=== PATIENT | female | born 1935 | race Caucasian/White ===

== ENCOUNTER 2017-09-22 14:24 | Inpatient (IN) ==
--- NOTE | 2017-09-22 15:50 | CT ---
EXAM: CT THORAX HISTORY: Cough. TECHNIQUE: CT thorax without intravenous contrast. Multiplanar images presented. COMPARISON: 01/16/2010 FINDINGS: Normal heart size. No pericardial effusion. There is mild to moderate atherosclerotic disease. Yeboah ited evaluation of the mediastinum and hilar structures without the administration of intravenous con trast agent. No gross lymphadenopathy or hilar mass is seen. Lungs are hyperinflated. There is biapical irregular pleuroparenchymal thickening similar to that pr eviously seen suggesting apical scarring. There is moderate thickening of the mid to upper left mary r fissure with some adjacent interstitial thickening as well. There was a large amount consolidation in this region previously. Tiny discoid focus of consolidation anterior right cardiophrenic angle, new since the older exam possibly related to scarring. The lungs currently are otherwise clear. Nor mal vascularity. No pneumothorax or pleural fluid. IMPRESSION: 1. Thickening of the mid to upper left major fissure and adjacent interstitium which may be fibrotic in nature or secondary to recurrent regional pneumonia. 2. Background of probable moderate chronic obstructive pulmonary disease/pulmonary emphysema. 3. Mild to moderate atherosclerotic disease.
[2017-09-22] MEDS ORDERED: PROAIR HFA IH PRN (16:06)
[2017-09-22] MEDS ORDERED: NITROSTAT SL PRN (16:06)
--- NOTE | 2017-09-22 16:10 | ED.PDOC ---
General ED Provider: Dr. COSTA MODI Chief Complaint: Chest Pain Stated Complaint: chest pain Time Seen by Physician: 14:30 (chest pain at rest) Mode of Arrival: Ambulance Information Source: Patient, EMT Exam Limitations: No limitations Nursing and Triage Documentation Reviewed and Agree: Yes Reviewed sepsis parameters & appropriate labs ordered?: Yes System Inflammatory Response Syndrome: Not Applicable Sepsis Protocol: For patient's 13 years and over: Temp is 96.8 and below OR 101 and greater Pulse >90 BPM Resp >20/minute Acutely Altered Mental Status Are patient's symptoms suggestive of a new infection, such as: -Pneumonia -Skin, Soft Tissue -Endocarditis -UTI -Bone, Joint Infection -Implantable Device -Acute Abdominal Infection -Wound Infection -Meningitis -Blood Stream Catheter Infection -Unknown System Inflammatory Response Syndrome: Not Applicable Cardiovascular Complaint Exam - Chest Pain Complaint/Exam Onset: Gradual Duration: this morning at rest Symptoms Are: Resolved Timing: Intermittent Length of Chest Pain Episodes: 2 to 3 hours Initial Severity: Mild Current Severity: Mild Location: Reports: Midsternal Pain Radiates: Reports: None Character: Reports: Dull Aggravating: Reports: None Alleviating: Reports: None Associated Signs and Symptoms: Denies: Diaphoresis, Nausea, Vomiting, Fever, Palpitations, Cough, Hemoptysis, Back pain, Abdominal pain, Dizziness, Short of air, Calf pain, Calf swelling Related History: Reports: Current ARBs Related Surgical History: Reports: None History of Healthcare-Acquired Pneumonia: Reports: No AMI/ACS Risk Factors: Reports: None TAD Risk Factors: Reports: None Pulmonary Embolism Risk Factors: Reports: None Prior Care for this Complaint: No Recent Stress Test: No Recent Echo/LV Function: No JVD Present: No Subcutaneous Emphysema Present: No Diminshed Breath Sounds: No Reproducible Chest Wall Pain: No Bilateral Pulses Present: No Unequal Pulses Noted: No If Risk Factors for AMI/ACS Consider: EKG, Cardiac Enzymes Review of Systems - Review Of Systems Constitutional: Reports: No symptoms Eyes: Reports: No symptoms Ears, Nose, Mouth, Throat: Reports: No symptoms Respiratory: Reports: No symptoms Cardiac: Reports: Chest pain GI: Reports: No symptoms : Reports: No symptoms Musculoskeletal: Reports: No symptoms Skin: Reports: No symptoms Neurological: Reports: No symptoms Endocrine: Reports: No symptoms Hematologic/Lymphatic: Reports: No symptoms All Other Systems: Reviewed and Negative Past Medical History - Past Medical History Previously Healthy: Yes Endocrine: Reports: None Cardiovascular: Reports: Hypertension Respiratory: Reports: None Hematological: Reports: None Gastrointestinal: Reports: None Genitourinary: Reports: None Neuro/Psych: Reports: None Musculoskeletal: Reports: None Cancer: Reports: None Last Menstrual Period: n/a - Surgical History General Surgical History: Reports: None - Family History Family History: Reports: None - Social History Smoking Status: Former smoker Hx Substance Use: No Alcohol Screening: None Physical Exam - Physical Exam Appearance: Well-appearing, No pain distress, Well-nourished Eyes: LJ, EOMI, Conjunctiva clear ENT: Ears normal, Nose normal, Oropharynx normal Respiratory: Airway patent, Breath sounds clear, Breath sounds equal, Respirations nonlabored Cardiovascular: RRR, Pulses normal, No rub, No murmur GI/: Soft, Nontender, No masses, Bowel sounds normal, No Organomegaly Musculoskeletal: Normal strength, ROM intact, No edema, No calf tenderness Skin: Warm, Dry, Normal color Neurological: Sensation intact, Motor intact, Reflexes intact, Cranial nerves intact, Alert, Oriented Psychiatric: Affect appropriate, Mood appropriate Interpretation - Radiology Interpretation Radiology Interpretation By: Radiologist Radiology Results: No acute changes - Protective Signal Repairer Rate: Normal Rhythm: Sinus Ectopy: None Physician Notification - Case Discussed Physician Notified: balbuena Time of Notification: 16:12 Critical Care Note - Critical Care Note Total Time (mins): 0 Course - Course Hematology/Chemistry: 09/22/17 14:35 09/22/17 14:35 Orders, Labs, Meds: Lab Review 09/22/17 09/22/17 09/22/17 14:35 14:35 14:35 WBC 9.27 RBC 3.21 L Hgb 10.2 L Hct 31.4 L MCV 97.8 MCH 31.8 H MCHC 32.5 RDW Coeff of Lexx 13.1 Plt Count 311 Immature Gran % (Auto) 0.9 Neut % (Auto) 78.5 Lymph % (Auto) 17.0 Jay % (Auto) 3.1 Eos % (Auto) 0.3 Baso % (Auto) 0.2 Immature Gran # (Auto) 0.1 Neut # (Auto) 7.3 H Lymph # (Auto) 1.6 Jay # (Auto) 0.3 L Eos # (Auto) 0.0 Baso # (Auto) 0.0 Puncture Site O2 Saturation ABG pH ABG pCO2 ABG pO2 ABG HCO3 ABG Total CO2 ABG Base Excess O2 Delivery Device Oxygen Liter Flow Sodium 138 Potassium 4.1 Chloride 104 Carbon Dioxide 23 Anion Gap 15.1 BUN 20 H Creatinine 1.25 Estimated GFR (MDRD) 41.00 BUN/Creatinine Ratio 16.00 Glucose 114 Calcium 9.5 Total Bilirubin 0.4 AST 18 ALT 10 L Alkaline Phosphatase 56 Total Creatine Kinase 45 Troponin I < 0.0100 B-Natriuretic Peptide 106 H Total Protein 7.3 Albumin 3.8 Globulin 3.5 Albumin/Globulin Ratio 1.09 09/22/17 14:47 WBC RBC Hgb Hct MCV MCH MCHC RDW Coeff of Lexx Plt Count Immature Gran % (Auto) Neut % (Auto) Lymph % (Auto) Jay % (Auto) Eos % (Auto) Baso % (Auto) Immature Gran # (Auto) Neut # (Auto) Lymph # (Auto) Jay # (Auto) Eos # (Auto) Baso # (Auto) Puncture Site Rb O2 Saturation 100.0 ABG pH 7.566 H* ABG pCO2 24.9 L ABG pO2 155.0 H ABG HCO3 22.6 ABG Total CO2 23 ABG Base Excess 0 O2 Delivery Device Nc Oxygen Liter Flow 3.00 Sodium Potassium Chloride Carbon Dioxide Anion Gap BUN Creatinine Estimated GFR (MDRD) BUN/Creatinine Ratio Glucose Calcium Total Bilirubin AST ALT Alkaline Phosphatase Total Creatine Kinase Troponin I B-Natriuretic Peptide Total Protein Albumin Globulin Albumin/Globulin Ratio Orders Category Date Time Status ABG DRAW REQUEST Stat CARDIO 09/22/17 14:37 Ordered ABG DRAW REQUEST Stat CARDIO 09/22/17 14:47 Ordered EKG-(ED ONLY) Stat CARDIO 09/22/17 14:28 Completed ABG Stat LAB 09/22/17 14:47 Completed B-TYPE NATRIURETIC PEPTIDE Stat LAB 09/22/17 14:35 Completed CBC W/ AUTO DIFF Stat LAB 09/22/17 14:35 Completed COMPREHENSIVE METABOLIC PANEL Stat LAB 09/22/17 14:35 Completed CREATINE KINASE Stat LAB 09/22/17 14:35 Completed TROPONIN I Stat LAB 09/22/17 14:[address] CHEST W/O CONTRAST Stat RADS 09/22/17 14:38 Completed Vital Signs: Temp Pulse Resp BP Pulse Ox 09/22/17 14:25 97.2 F L 60 28 H 110/52 L 99 HORTENCIA Risk Score HORTENCIA Risk Score: Risk Score Odds of by 30D 0 0.1 (0.1-0.2) 1 0.3 (0.2-0.3) 2 0.4 (0.3-0.5) 3 0.7 (0.6-0.9) 4 1.2 (1.0-1.5) 5 2.2 (1.9-2.6) 6 3.0 (2.5-3.6) 7 4.8 (3.8-6.1) Departure - Departure Time of Disposition: 16:12 Disposition: ADMITTED INPATIENT Discharge Problem: Chest pain Instructions: Chest Pain (ED) Condition: Good Pt referred to PMD for follow-up: Yes IPMP verified?: No Additional Instructions: Please call your Family Physician as soon as possible to schedule a follow-up appointment. Allergies/Adverse Reactions: Allergies codeine Adverse Reaction (Verified 09/22/17 14:29) Home Medications: Ambulatory Orders Albuterol Sulfate [Proair Hfa] 2 puff IH Q4H PRN 09/22/17 Budesonide/Formoterol Fumarate [Symbicort 160-4.5 Mcg Inhaler] 2 puff IH BID Lorazepam [Ativan] 0.5 mg PO BEDTIME 09/22/17 Losartan Potassium [Cozaar] 100 mg PO DAILY 09/22/17 Meclizine HCl [Antivert] 25 mg PO TID 09/22/17 Metoprolol Succinate 25 mg PO DAILY 09/22/17 Nitroglycerin [Nitrostat] 0.4 mg SL Q5MIN X 3 DOSES PRN 09/22/17 Omeprazole [Prilosec] 20 mg PO QDAC 09/22/17 Disposition Discussed With: Patient
[2017-09-22 17:49] VITALS: BMI 17.2
[2017-09-22] MEDS: SODIUM CHLORIDE 1,000 ML IV SCH (18:38)
[2017-09-22] MEDS ORDERED: DECADRON 4 MG/ML SDV IVP STA (19:02)
[2017-09-22] MEDS: TORADOL IVP PRN (19:14)
[2017-09-22] MEDS: ANTIVERT PO SCH (20:47)
[2017-09-22] MEDS: PRILOSEC PO SCH (20:47)
[2017-09-22] MEDS: ATIVAN PO SCH (20:47)
[2017-09-22] MEDS: SYMBICORT 160-4.5 MCG INHALER IH SCH (20:47)
[2017-09-23] MEDS: PRILOSEC PO SCH ×2 (06:12→16:36)
[2017-09-23] MEDS ORDERED: PRILOSEC PO SCH (06:30)
[2017-09-23] MEDS: SODIUM CHLORIDE 1,000 ML IV SCH ×2 (07:41→20:46)
[2017-09-23] MEDS: ANTIVERT PO SCH ×3 (08:57→20:43)
[2017-09-23] MEDS: TOPROL XL PO SCH (08:57)
[2017-09-23] MEDS: COZAAR PO SCH (08:57)
[2017-09-23] MEDS: SYMBICORT 160-4.5 MCG INHALER IH SCH ×2 (08:57→20:43)
--- NOTE | 2017-09-23 09:30 | HP ---
DATE OF SERVICE: 09/22/17 REASON FOR HOSPITALIZATION: Chest pain HISTORY OF PRESENT ILLNESS: 82 year old white female came to the emergency room with complaint of having chest pain. The patient is poor historian, hard of hearing. Chest pain is across upper part of the chest. It was associated with some sweating. The patient has been having this chest pain off and on for past couple of weeks. PAST MEDICAL HISTORY/PAST SURGICAL HISTORY: History of hypertension Anxiety syndrome Chronic lung disease REVIEW OF SYSTEMS: CONSTITUTIONAL: No night sweats. Fatigue and weakness. No fever or chills. HEENT: Eyes: No visual changes. No eye pain. No eye discharge. ENT: No runny nose. No epistaxis. No sinus pain. No sore throat. No odynophagia. No ear pain. No congestion. RESPIRATORY: No cough, no congestion. No hemoptysis. No shortness of breath. CARDIOVASCULAR: No angina symptoms. No CHF symptoms. No atypical chest pain for CAD. Chest pain substernal also upper part of the chest across, sharp shooting at time but also tightness, not associated with any exertion comes and goes at any times comes more mainly at rest. Several days duration. No palpitations. No PND. No orthopnea. GASTROINTESTINAL: No abdominal pain. No nausea or vomiting. No diarrhea or constipation. No hematemesis. No hematochezia. Questionable reflux symptoms. No melena. GENITOURINARY: No urgency. No frequency. No dysuria. No hematuria. No obstructive symptoms. No discharge. No pain. No significant abnormal bleeding. MUSCULOSKELETAL: No musculoskeletal pain. No joint swelling. Arthritic pain. NEUROLOGICAL: No headache. No neck pain. No syncope. No seizures. No dizziness. PSYCHIATRIC: Not anxious. No depression. No suicidal thoughts. No homicidal thoughts. SKIN: No rash. No lesions. No wounds. ENDOCRINE: No unexplained weight loss. No weight gain. HEMATOLOGIC/LYMPHATIC: No anemia. No purpura. No petechiae. No prolonged or excessive bleeding. No palpable lymph nodes. PERSONAL/FAMILY/SOCIAL HISTORY: The patient . Non smoker and no alcohol abuse. Does all activity of daily living. Drives a car, right now she doesn't have one. She used to be my patient but then moved away and now moved back to the [facility] where Dr. Fonseca, Nurse Practitioner is following her. MEDICATIONS: Antivert 25mg PO three times a day Symbicort 160-4.5 twice a day Nitrostat 0.4mg SL Q 5 minutes x3 doses PRN Prilosec 20mg PO QAM Metoprolol 25mg PO daily Ativan 0.5mg PO bedtime ProAir two puffs twice a day Cozaar 100mg PO daily ALLERGIES: Codeine. PHYSICAL EXAMINATION: GENERAL: The patient is oriented to time, place and person looks somewhat pale. VITAL SIGNS: Temperature 98.1, pulse 64, respiratory rate 20, blood pressure 110/52 and pulse ox 99%. HEENT: Head normocephalic, atraumatic. Eyes: Extraocular muscles are intact. Pupils are equal, round and reactive to light and accommodation. Ears: No lesions. Nose appeared normal. Throat: No exudate or erythema. NECK: Supple. No JVP, no carotid bruit. No lymphadenopathy or thyromegaly. Looks somewhat cachetic. LUNGS: Decreased breath sounds bilaterally. No crepitations. Clear to auscultation. Percussion note normal. Chest symmetrical. HEART: S1, S2, no S3. No murmurs. No cyanosis or clubbing. No ascites. Pulses: Dorsalis pedis and posterior tibial pulses +1 to +2 bilaterally. ABDOMEN: Soft. Nontender. Bowel sounds active. No CVA tenderness. No mass felt. EXTREMITIES: No edema. Full range of motion of all extremities, equal. NEUROLOGIC: No focal deficit. Cranial nerves II through XII are grossly intact. No headache, no double vision or headache. SKIN: Dry. Intact. Turgor - normal. Mucosa membrane dry. LYMPHATIC: No palpable lymph nodes/no lymphedema. MUSCULOSKELETAL: Normal joints with no swelling. Muscle tone is normal. LABS: Hgb 10.2, hct 31, WBC 9,200 normal differential, creatinine 1.2, BUN 20, potassium 4.1 and BNP 106. Cardiac markers, CK and Troponin all negative. ABG pO2 155, pCO2 24, pH 7.56 with 100% saturation on 3 liters. EKG sinus rhythm. No acute changes. ASSESSMENT: 1. Chest pain etiology unknown. The patient is very poor historian but the patient's pain is non exertional. He described the pain as 8-9 on scale of 1-10 lasted more than half an hour or more considering the fact the duration of pain and the severity the patient doesn't have any acute changes or cardiac markers change. 2. Chronic lung disease 3. Hypertension 4. Anemia 5. Generalized osteoarthritis 6. Chronic kidney disease, lipid profile unknown PLAN: 1. Routine telemetry orders 2. Cardiac markers 3. Serial EKG's 4. Continue all the home medications 5. Will give Toradol 30mg IV 6. 1/2cc Decadron 7. The patient has some tenderness on examination of upper chest wall, will do echocardiogram to evaluate LV function. If I can get old chart, I will review the old chart that I had with her. I don't know how long ago she was my patient. TIME SPENT: More than 70 minutes. ADDENDUM: I reviewed the patient's last office visit that was on 03-01-13 at that time she had visited me for chest pain, sharp unrelated to exertion just for few moments. She had that for number of years off and on. The patient has chronic lung disease and had quit smoking 2009. She gives history of hypertension and has LVH by EKG and echo at that time. Dyslipidemia, chronic lung disease and chest pain was atypical. Veronica Perera was seen for the first time on 12/2012 for consult and prior to that Veronica started seeing me in 1995, my patient for a long time. At that time she was on Symbicort, ProAir, Diltazem, Omeprazole , Aspirin, Pravastatin, Hyzaar and Lorazepam. Surgical history: status post back surgery, hysterectomy. She smoked for 55 years. She has 6 children. Father at 92 and mother at 57 from C of the colon. 4 brothers. At that time she was listed as allergic to Codeine. MTDD
--- NOTE | 2017-09-23 09:53 | PCM.PROG ---
Attending Provider: ATTENDING PROVIDER: Dr. ALEE MORALES[facility] This patient is seen with Lluvia Johns, Nurse Practitioner. DATE OF SERVICE: 09/23/17 SUBJECTIVE: This 82 year old WHITE/ F was hospitalized 09/22/17. The patient is lying in bed, alert. She has not experienced any chest pain. When it does occur she describes it as a sharp pain, no associated shortness of breath or sweating. Chest CT shows COPD. She quit smoking in 2006. Dr. Morales will do echo today. REVIEW OF SYSTEMS: CONSTITUTIONAL: No night sweats. No fatigue, malaise, lethargy. No fever or chills. HEENT: Eyes: No visual changes. No eye pain. No eye discharge. ENT: No runny nose. No epistaxis. No sinus pain. No odynophagia. No congestion. RESPIRATORY: No cough, no congestion. No hemoptysis. No shortness of breath. CARDIOVASCULAR: No angina symptoms. No CHF symptoms. Atypical chest pain. No palpitations. No orthopnea.. GASTROINTESTINAL: No abdominal pain. No nausea or vomiting. No diarrhea or constipation. No hematemesis. No hematochezia. GENITOURINARY: No urgency. No frequency. No dysuria. No hematuria. No obstructive symptoms. No discharge. No pain. No significant abnormal bleeding. MUSCULOSKELETAL: No musculoskeletal pain; no joint swelling. NEUROLOGICAL: Awake, alert, oriented to time, place and person. No headache. No neck pain. No syncope. No seizures. No dizziness. PSYCHIATRIC: Not anxious. No depression. No suicidal thoughts. No homicidal thoughts. SKIN: No rash. No lesions. No wounds. ENDOCRINE: No unexplained weight loss. No weight gain. HEMATOLOGIC/LYMPHATIC: No anemia. No purpura. No petechiae. No prolonged or excessive bleeding. No palpable lymph nodes. PHYSICAL EXAMINATION: GENERAL: The patient is awake, alert and oriented, lying in bed in no distress. VITAL SIGNS: Temperature 97.9 F, Pulse 77, Respiratory Rate 14, BP 123/60, Pulse Ox 98% HEENT: Head normocephalic, atraumatic. Eyes: Extraocular muscles are intact. Pupils are equal, round and reactive to light and accommodation. Ears: No lesions. Nose appeared normal. Throat: No exudate or erythema. NECK: Supple. No JVD, no carotid bruit. No lymphadenopathy or thyromegaly. LUNGS: Clear to auscultation. Percussion note normal. Chest symmetrical. HEART: S1, S2, no S3. No murmurs. No cyanosis or clubbing. No ascites. Pulses: Dorsalis pedis and posterior tibial pulses +1 to +2 both sides. ABDOMEN: Soft. Non-tender. Bowel sounds active. No CVA tenderness. No mass felt. EXTREMITIES: No edema. Full range of motion of all extremities, equal. NEUROLOGIC: No focal deficit. Cranial nerves II through XII are grossly intact. No headache, no double vision or headache. SKIN: Not dry. Intact. Turgor-normal. LYMPHATIC: No palpable lymph nodes/no lymphedema. MUSCULOSKELETAL: Normal joints with no swelling. Muscle tone is normal. LAB REVIEW: 09/23/17 06:20 09/23/17 06:20 09/23/17 06:20: Sodium 138, Potassium 4.9, Chloride 108 H, Carbon Dioxide 22 L, Anion Gap 12.9, BUN 24 H, Creatinine 1.29, Estimated GFR (MDRD) 40.00, BUN/ Creatinine Ratio 18.60, Glucose 129 H, Calcium 8.9, Total Bilirubin 0.4, AST 14 L, ALT 8 L, Alkaline Phosphatase 50 L, Total Creatine Kinase 48, Troponin I < 0.0100, Total Protein 6.1, Albumin 3.1 L, Globulin 3.0, Albumin/Globulin Ratio 1.03 09/23/17 06:20: WBC 5.34, RBC 2.95 L, Hgb 9.4 L, Hct 28.7 L, MCV 97.3, MCH 31.9 H, MCHC 32.8, RDW Coeff of Lexx 13.2, Plt Count 247, Immature Gran % (Auto) 0.4, Neut % (Auto) 83.7, Lymph % (Auto) 14.2, [place] % (Auto) 1.7, Eos % (Auto) 0.0, Baso % (Auto) 0.0, Immature Gran # (Auto) 0.0, Neut # (Auto) 4.5, Lymph # (Auto ) 0.8, [place] # (Auto) 0.1 L, Eos # (Auto) 0.0, Baso # (Auto) 0.0 09/22/17 22:17: Total Creatine Kinase 54, Troponin I < 0.0100 04/25/18 14:47: Puncture Site Rb, O2 Saturation 100.0, ABG pH 7.566 H*, ABG pCO2 24.9 L, ABG pO2 155.0 H, ABG HCO3 22.6, ABG Total CO2 23, ABG Base Excess 0 , O2 Delivery Device Nc, Oxygen Liter Flow 3.00 09/22/17 14:35: B-Natriuretic Peptide 106 H 09/22/17 14:35: Sodium 138, Potassium 4.1, Chloride 104, Carbon Dioxide 23, Anion Gap 15.1, BUN 20 H, Creatinine 1.25, Estimated GFR (MDRD) 41.00, BUN/ Creatinine Ratio 16.00, Glucose 114, Calcium 9.5, Total Bilirubin 0.4, AST 18, ALT 10 L, Alkaline Phosphatase 56, Total Creatine Kinase 45, Troponin I < 0.0100 , Total Protein 7.3, Albumin 3.8, Globulin 3.5, Albumin/Globulin Ratio 1.09 09/22/17 14:35: WBC 9.27, RBC 3.21 L, Hgb 10.2 L, Hct 31.4 L, MCV 97.8, MCH 31.8 H, MCHC 32.5, RDW Coeff of Lexx 13.1, Plt Count 311, Immature Gran % (Auto) 0.9, Neut % (Auto) 78.5, Lymph % (Auto) 17.0, [place] % (Auto) 3.1, Eos % (Auto) 0.3, Baso % (Auto) 0.2, Immature Gran # (Auto) 0.1, Neut # (Auto) 7.3 H, Lymph # (Auto) 1.6, [place] # (Auto) 0.3 L, Eos # (Auto) 0.0, Baso # (Auto) 0.0 ASSESSMENT: 1. CHEST PAIN, LIKELY NONCARDIAC 2. HYPERTENSION 3. COPD, QUIT SMOKING SINCE 2006 4. GERD PLAN: 1. Increase Prilosec to b.i.d. 2. Echocardiogram 3. Lipid panel 4. T4, TSH 5. A1C Plan and coordination of the patient's care discussed in the presence of Technical Support Director and nurse. CONDITION: Stable SCRIBED BY: Rohith MORENO scribed while in presence of service performed by Dr. Morales/Lluvia Johns APRN on 09/23/17 ([id number])
[2017-09-23] MEDS: TORADOL IVP PRN (20:43)
[2017-09-23] MEDS: ATIVAN PO SCH (20:43)
[2017-09-24] MEDS: PRILOSEC PO SCH ×2 (06:11→17:00)
[2017-09-24] MEDS: SYMBICORT 160-4.5 MCG INHALER IH SCH ×2 (09:53→20:28)
[2017-09-24] MEDS: TOPROL XL PO SCH (09:54)
[2017-09-24] MEDS: ANTIVERT PO SCH ×3 (09:54→20:29)
[2017-09-24] MEDS: COZAAR PO SCH (09:54)
[2017-09-24] MEDS: SODIUM CHLORIDE 1,000 ML IV SCH (10:56)
--- NOTE | 2017-09-24 11:35 | PCM.PROG ---
Attending Provider: ATTENDING PROVIDER[facility] This patient is seen with Lluvia Johns, Nurse Practitioner. DATE OF SERVICE: 09/24/17 SUBJECTIVE: This 82 year old WHITE/ F was hospitalized 09/22/17. The patient is lying in bed, alert. No chest pain. Hemoglobin is lower today. REVIEW OF SYSTEMS: CONSTITUTIONAL: Weakness, fatigue. No night sweats. No malaise, lethargy. No fever or chills. HEENT: Eyes: No visual changes. No eye pain. No eye discharge. ENT: No runny nose. No epistaxis. No sinus pain. No odynophagia. No congestion. RESPIRATORY: No cough, no congestion. No hemoptysis. No shortness of breath. CARDIOVASCULAR: No angina symptoms. No CHF symptoms. No atypical chest pain for CAD. No palpitations. No orthopnea.. GASTROINTESTINAL: No abdominal pain. No nausea or vomiting. No diarrhea or constipation. No hematemesis. No hematochezia. GENITOURINARY: No urgency. No frequency. No dysuria. No hematuria. No obstructive symptoms. No discharge. No pain. No significant abnormal bleeding. MUSCULOSKELETAL: No musculoskeletal pain; no joint swelling. NEUROLOGICAL: Awake, alert, oriented to time, place and person. No headache. No neck pain. No syncope. No seizures. No dizziness. PSYCHIATRIC: Not anxious. No depression. No suicidal thoughts. No homicidal thoughts. SKIN: No rash. No lesions. No wounds. ENDOCRINE: No unexplained weight loss. No weight gain. HEMATOLOGIC/LYMPHATIC: Anemia. No purpura. No petechiae. No prolonged or excessive bleeding. No palpable lymph nodes. PHYSICAL EXAMINATION: GENERAL: The patient is awake, alert and oriented, lying in bed in no distress. VITAL SIGNS: Temperature 98.1 F, Pulse 52, Respiratory Rate 20, BP 96/50, Pulse Ox 99% HEENT: Head normocephalic, atraumatic. Eyes: Extraocular muscles are intact. Pupils are equal, round and reactive to light and accommodation. Ears: No lesions. Nose appeared normal. Throat: No exudate or erythema. Pallor positive. NECK: Supple. No JVD, no carotid bruit. No lymphadenopathy or thyromegaly. LUNGS: Diminished breath sounds bilaterally. Clear to auscultation. Percussion note normal. Chest symmetrical. HEART: S1, S2, no S3. No murmurs. No cyanosis or clubbing. No ascites. Pulses: Dorsalis pedis and posterior tibial pulses +1 to +2 both sides. ABDOMEN: Soft. Non-tender. Bowel sounds active. No CVA tenderness. No mass felt. EXTREMITIES: No edema. Full range of motion of all extremities, equal. NEUROLOGIC: No focal deficit. Cranial nerves II through XII are grossly intact. No headache, no double vision or headache. SKIN: Not dry. Intact. Turgor-normal. LYMPHATIC: No palpable lymph nodes/no lymphedema. MUSCULOSKELETAL: Normal joints with no swelling. Muscle tone is normal. LAB REVIEW: 09/24/17 04:30 09/24/17 04:30 09/24/17 04:30: Sodium 140, Potassium 4.4, Chloride 112 H, Carbon Dioxide 20 L, Anion Gap 12.4, BUN 32 H, Creatinine 1.46 H, Estimated GFR (MDRD) 34.00, BUN/ Creatinine Ratio 21.91, Glucose 100, Calcium 8.6, Total Bilirubin 0.4, AST 19, ALT 12, Alkaline Phosphatase 43 L, Total Protein 5.5 L, Albumin 2.9 L, Globulin 2.6, Albumin/Globulin Ratio 1.12 09/24/17 04:30: WBC 8.04, RBC 2.78 L, Hgb 8.8 L, Hct 27.2 L, MCV 97.8, MCH 31.7 H, MCHC 32.4, RDW Coeff of Lexx 13.4, Plt Count 250, Immature Gran % (Auto) 0.4, Neut % (Auto) 66.6, Lymph % (Auto) 28.5, Sanborn % (Auto) 3.6, Eos % (Auto) 0.5, Baso % (Auto) 0.4, Immature Gran # (Auto) 0.0, Neut # (Auto) 5.4, Lymph # (Auto ) 2.3, Sanborn # (Auto) 0.3 L, Eos # (Auto) 0.0, Baso # (Auto) 0.0 09/23/17 06:20: Triglycerides 67, Cholesterol 194, LDL Cholesterol, Calc 130, VLDL Cholesterol 13, HDL Cholesterol 51, Cholesterol/HDL Ratio 3.8 L, TSH 1.046 , Free T4 0.85 09/23/17 06:20: Hemoglobin A1c 5.6 ASSESSMENT: 1. AMEMIA 2. CHEST PAIN, LIKELY NONCARDIAC 3. HYPERTENSION 4. COPD, QUIT SMOKING SINCE 2006 5. GERD 6. CKD PLAN: 1. PFT 2. Up and about 3. Echocardiogram 4. Anemia profile 5. Decrease IV fluids to 50 mL/hr Plan and coordination of the patient's care discussed in the presence of Natural Resource Officer and nurse. CONDITION: Stable SCRIBED BY: REMI GRANT Sap Data Analyst scribed while in presence of service performed by Dr. Morales/Lluvia Johns APRN on 09/24/17 ([id number])
[2017-09-24] MEDS ORDERED: SODIUM CHLORIDE 1,000 ML IV SCH (12:30)
[2017-09-24] MEDS ORDERED: TYLENOL PO PRN (14:21)
[2017-09-24] MEDS: DECADRON 4 MG/ML SDV IM SCH (15:27)
[2017-09-24] MEDS: ATIVAN PO SCH (20:29)
[2017-09-25] MEDS: PRILOSEC PO SCH ×2 (05:41→17:30)
[2017-09-25] MEDS: SYMBICORT 160-4.5 MCG INHALER IH SCH ×2 (08:46→20:34)
[2017-09-25] MEDS: DECADRON 4 MG/ML SDV IM SCH (08:47)
[2017-09-25] MEDS: COZAAR PO SCH (08:47)
[2017-09-25] MEDS: ANTIVERT PO SCH ×3 (08:47→20:34)
[2017-09-25] MEDS: TOPROL XL PO SCH (08:47)
[2017-09-25] MEDS: ATIVAN PO SCH (20:34)
[2017-09-26] MEDS: PRILOSEC PO SCH (05:34)
[2017-09-26 05:36] VITALS: TEMP 98.2
[2017-09-26] MEDS: ANTIVERT PO SCH (08:53)
[2017-09-26] MEDS: COZAAR PO SCH (08:53)
[2017-09-26] MEDS: TOPROL XL PO SCH (08:53)
[2017-09-26] MEDS: SYMBICORT 160-4.5 MCG INHALER IH SCH (08:53)
[2017-09-26] MEDS: DECADRON 4 MG/ML SDV IM SCH (08:54)
[2017-09-26 10:34] VITALS: BP 114/51
--- NOTE | 2017-09-27 11:58 | ECHO2D ---
Date of Exam: 09/24/17 Ordering Physician: DR. ALEE MORALES/HOSPITALIST Room #: SCU 3 Reason for Echo: CHEST PAIN, HTN LACY ENDRIZZIA, PA M-Mode Normal Adult Results LV Dimensions Normal Adult Results AoV Opening excursions >1.6 >1.6 LVEDD-base- 3.5-5.8 4.7 Ao root dimensions 2.0-3.7 3.2 LVESD-base- 3.1-4.6 L. Atrium dimensions 1.9-3.8 4.3 Post. Wall thickness 0.8-1.1 1.0 IV septum (thickness) 0.7-1.2 1.1 Post. Wall excursion 0.72-1.3 NORMAL Septal motion NORMAL Systolic motion R. Ventricular cavity 1.5-2.0 NORMAL LVEF 60% 61% Paradoxical septal wall motion NORMAL 2-D : 2-D M Mode Echocardiogram was performed using apical four chamber and left parasternal long and short axis views. Mitral, tricuspid and aortic valves appear to be normal. Contractility of the left ventricle seems to be normal, so is the cavity size. Left atrial cavity size and aortic root appear to be normal. There is no pericardial effusion. There is no thrombus noted in the left ventricular or left aortic cavity. No mitral valve prolapse noted. M-MODE: MV: NORMAL AV: NORMAL TV: NORMAL PV: CHAMBER SIZE: LEFT ATRIAL CAVITY ENLARGEMENT WALL MOTION: NORMAL PERICARDIUM: NORMAL INTERPRETATION: 1. NORMAL LEFT VENTRICULAR CONTRACTILITY 2. NORMAL VALVES 3. ENLARGED LEFT ATRIAL CAVITY MTDD
--- NOTE | 2017-09-29 13:11 | PN ---
DATE OF SERVICE: 09/23/17 SUBJECTIVE: 82 year old white female hospitalized with chest pain. The patient did have mild chest pain while she was in the hospital. The patient's EKG and cardiac markers are still negative. Telemetry shows sinus rhythm. EKG shows P Pulmonale with pulmonary disease with sinus rhythm. No acute changes. REVIEW OF SYSTEMS: CONSTITUTIONAL: No night sweats. No fatigue, malaise, lethargy. No fever or chills. HEENT: Eyes: No visual changes. No eye pain. No eye discharge. ENT: No runny nose. No epistaxis. No sinus pain. No sore throat. No odynophagia. No congestion. RESPIRATORY: No cough, no congestion. No hemoptysis. No shortness of breath. CARDIOVASCULAR: No angina symptoms. No CHF symptoms. No atypical chest pain for CAD. No palpitations. No orthopnea. Chest pain, which is mild, upper part of the chest. GASTROINTESTINAL: No abdominal pain. No nausea or vomiting. No diarrhea or constipation. No hematemesis. No hematochezia. GENITOURINARY: No urgency. No frequency. No dysuria. No hematuria. No obstructive symptoms. No discharge. No pain. No significant abnormal bleeding. MUSCULOSKELETAL: No musculoskeletal pain; no joint swelling. NEUROLOGICAL: No headache. No neck pain. No syncope. No seizures. No dizziness. PSYCHIATRIC: Not anxious. No depression. No suicidal thoughts. No homicidal thoughts. SKIN: No rash. No lesions. No wounds. ENDOCRINE: No unexplained weight loss. No weight gain. HEMATOLOGIC/LYMPHATIC: No anemia. No purpura. No petechiae. No prolonged or excessive bleeding. No palpable lymph nodes. PHYSICAL EXAMINATION: GENERAL: The patient is oriented to time, place and person. HEENT: Head normocephalic, atraumatic. Eyes: Extraocular muscles are intact. Pupils are equal, round and reactive to light and accommodation. Ears: No lesions. Nose appeared normal. Throat: No exudate or erythema. NECK: Supple. No JVD, no carotid bruit. No lymphadenopathy or thyromegaly. LUNGS: Decreased breath sounds but clear to auscultation. Percussion note normal. Chest symmetrical. HEART: S1, S2, no S3. No murmurs. No cyanosis or clubbing. No ascites. Pulses: Dorsalis pedis and posterior tibial pulses +1 to +2 both sides. ABDOMEN: Soft. Nontender. Bowel sounds active. No CVA tenderness. No mass felt. EXTREMITIES: No edema. Full range of motion of all extremities, equal. NEUROLOGIC: No focal deficit. Cranial nerves II through XII are grossly intact. No headache, no double vision or headache. SKIN: Not dry. Intact. Turgor - normal. LYMPHATIC: No palpable lymph nodes/no lymphedema. MUSCULOSKELETAL: Normal joints with no swelling. Muscle tone is normal. ASSESSMENT: 1. Chest pain seems to be noncardiac, will do an echocardiogram. So far all the tests; telemetry and cardiac markers are negative. 2. Chronic lung disease TIME SPENT: More than 30 minutes. Plan and coordination of the patient's care discussed in the presence of nurse. REGINA
--- NOTE | 2017-09-29 13:59 | HP ---
DATE OF SERVICE: 09/23/17 HISTORY OF PRESENT ILLNESS: This is an 82-year-old female who arrived to the emergency room via ambulance complaining of chest pain at rest. At the time she was not experiencing any shortness of breath. She was not sweating. She does have a somewhat significant cardiac history. We have seen her in the past; the last time was 2012 which the patient moved away and started seeing another primary care physician, which I do believe is Raymundo in [place]. PAST MEDICAL HISTORY: Hypertension LVH Dyslipidemia COPD History of atypical chest pain for coronary artery disease Anxiety PAST SURGICAL HISTORY: Hysterectomy Back surgery Cataracts Some type of valve repair, patient is unsure REVIEW OF SYSTEMS: CONSTITUTIONAL: No night sweats. No fatigue, malaise, lethargy. No fever or chills. HEENT: Eyes: No visual changes. No eye pain. No eye discharge. ENT: No runny nose. No epistaxis. No sinus pain. No sore throat. No odynophagia. No ear pain. No congestion. RESPIRATORY: No cough, no congestion. No hemoptysis. No shortness of breath. CARDIOVASCULAR: No angina symptoms. No CHF symptoms. Positive for chest pain for CAD. No palpitations. No PND. No orthopnea. GASTROINTESTINAL: No abdominal pain. No nausea or vomiting. No diarrhea or constipation. No hematemesis. No hematochezia. GENITOURINARY: No urgency. No frequency. No dysuria. No hematuria. No obstructive symptoms. No discharge. No pain. No significant abnormal bleeding. MUSCULOSKELETAL: No musculoskeletal pain. No joint swelling. No arthritis. NEUROLOGICAL: No headache. No neck pain. No syncope. No seizures. No dizziness. PSYCHIATRIC: Not anxious. No depression. No suicidal thoughts. No homicidal thoughts. SKIN: No rash. No lesions. No wounds. ENDOCRINE: No unexplained weight loss. No weight gain. HEMATOLOGIC/LYMPHATIC: No anemia. No purpura. No petechiae. No prolonged or excessive bleeding. No palpable lymph nodes. PERSONAL/FAMILY/SOCIAL HISTORY: Mother -had colon cancer. The patient is a with 6 children. She currently lives at home by herself and is retired. She was a former one pack per day smoker and quit in 2009. MEDICATIONS: Meclizine (Antivert) 25 mg p.o. t.i.d. Symbicort 160-4.5 two puff IH b.i.d. Nitrostat 0.4 mg SL q.5 min times three doses p.r.n. Prilosec 20 mg p.o. q.d. a.c. Metoprolol 25 mg p.o. daily Ativan 0.5 mg p.o. bedtime ProAir HFA 2 puff IH q.4h p.r.n. Cozaar 100 mg p.o. daily ALLERGIES: CODEINE PHYSICAL EXAMINATION: VITAL SIGNS: Temperature 97.2, heart rate 60, respirations 28, BP 110/52, pulse ox 99%. HEENT: Head normocephalic, atraumatic. Eyes: Extraocular muscles are intact. Pupils are equal, round and reactive to light and accommodation. Ears: No lesions. Nose appeared normal. Throat: No exudate or erythema. NECK: Supple. No JVD, no carotid bruit. No lymphadenopathy or thyromegaly. LUNGS: Diminished breath sounds bilaterally. Clear to auscultation. Percussion note normal. Chest symmetrical. HEART: S1, S2, no S3. No murmurs. No cyanosis or clubbing. No ascites. Pulses: Dorsalis pedis and posterior tibial pulses +1 to +2 bilaterally. ABDOMEN: Soft. Nontender. Bowel sounds active. No CVA tenderness. No mass felt. EXTREMITIES: No edema. Full range of motion of all extremities, equal. NEUROLOGIC: No focal deficit. Cranial nerves II through XII are grossly intact. No headache, no double vision or headache. SKIN: Not dry. Intact. Turgor - normal. LYMPHATIC: No palpable lymph nodes/no lymphedema. MUSCULOSKELETAL: Normal joints with no swelling. Muscle tone is normal. LABS: White count 9.27, hemoglobin 10.2, hematocrit 31.4, platelets 311. Sodium 138, potassium 4.1, BUN 20, creatinine 1.25. AST 18, ALT 10, alkaline phosphatase 56 , total CK 45, troponin undetectable. BNP 106, total protein 7.3. ABGs on 3L 02 sat 100, pH 7.566, pc02 24.9, p02 155, bicarb 22.6, total C02 23. ASSESSMENT: 1. CHEST PAIN 2. ANEMIA 3. HYPERTENSION 4. COPD 5. PRISON SMOKER PLAN: 1. Will admit to [facility] with routine telemetry orders 2. Continue to monitor cardiac enzymes 3. Chest x-ray 4. CBC, CMP daily 5. Regular diet 6. Continue home medications 7. Nitro p.r.n. for chest pain 8. Toradol 30 mg IV q.8hr p.r.n. 9. IV fluids NS at 75 cc/hr 10. We will follow closely 11. Will increase Prilosec 20 mg b.i.d. p.o. TIME SPENT: More than 70 minutes. MTDD
--- NOTE | 2017-09-29 14:02 | PN ---
DATE OF SERVICE: 09/24/17 SUBJECTIVE: The patient was seen and examined with the nurse practitioner. She was hospitalized with chest pain, dizziness. Chest pain is under control with IV hydration. The patient's hemoglobin has dropped. Will continue to watch that it has dropped from 10.2 to 8.4. No evidence of active GI bleed. Cardiovascular status is stable. Will do echocardiogram to evaluate LV function. The patient has COPD. Will also do PFT. CONDITION: Stable. TIME SPENT: More than 30 minutes. Plan and coordination of the patient's care discussed in the presence of nurse. REGINA
--- NOTE | 2017-09-29 14:07 | PN ---
DATE OF SERVICE: 09/25/17 SUBJECTIVE: 82-year-old white female hospitalized with chest pain. The patient's chest pain is superficial, noncardiac in type, musculoskeletal. She is feeling better. No symptoms of CHF, coronary insufficiency. REVIEW OF SYSTEMS: CONSTITUTIONAL: No night sweats. No fatigue, malaise, lethargy. No fever or chills. HEENT: Eyes: No visual changes. No eye pain. No eye discharge. ENT: No runny nose. No epistaxis. No sinus pain. No sore throat. No odynophagia. No congestion. RESPIRATORY: No cough, no congestion. No hemoptysis. No shortness of breath. CARDIOVASCULAR: No angina symptoms. No CHF symptoms. No atypical chest pain for CAD. No palpitations. No orthopnea. GASTROINTESTINAL: No abdominal pain. No nausea or vomiting. No diarrhea or constipation. No hematemesis. No hematochezia. GENITOURINARY: No urgency. No frequency. No dysuria. No hematuria. No obstructive symptoms. No discharge. No pain. No significant abnormal bleeding. MUSCULOSKELETAL: No musculoskeletal pain; no joint swelling. NEUROLOGICAL: No headache. No neck pain. No syncope. No seizures. No dizziness. PSYCHIATRIC: Not anxious. No depression. No suicidal thoughts. No homicidal thoughts. SKIN: No rash. No lesions. No wounds. ENDOCRINE: No unexplained weight loss. No weight gain. HEMATOLOGIC/LYMPHATIC: No anemia. No purpura. No petechiae. No prolonged or excessive bleeding. No palpable lymph nodes. PHYSICAL EXAMINATION: GENERAL: The patient is oriented to time, place and person. VITAL SIGNS: Temperature 98, pulse 54, respiratory rate 16, BP 114/65, pulse ox 98%. HEENT: Head normocephalic, atraumatic. Eyes: Extraocular muscles are intact. Pupils are equal, round and reactive to light and accommodation. Ears: No lesions. Nose appeared normal. Throat: No exudate or erythema. NECK: Supple. No JVD, no carotid bruit. No lymphadenopathy or thyromegaly. LUNGS: Decreased breath sounds but clear to auscultation. Percussion note normal. Chest symmetrical. HEART: S1, S2, no S3. No murmurs. No cyanosis or clubbing. No ascites. Pulses: Dorsalis pedis and posterior tibial pulses +1 to +2 both sides. ABDOMEN: Soft. Nontender. Bowel sounds active. No CVA tenderness. No mass felt. EXTREMITIES: No edema. Full range of motion of all extremities, equal. NEUROLOGIC: No focal deficit. Cranial nerves II through XII are grossly intact. No headache, no double vision or headache. SKIN: Not dry. Intact. Turgor - normal. LYMPHATIC: No palpable lymph nodes/no lymphedema. MUSCULOSKELETAL: Normal joints with no swelling. Muscle tone is normal. LABS: Hemoglobin 9, hematocrit 27, WBC 7,300, normal differential. Creatinine 1.3, BUN 29, potassium 4. ASSESSMENT: 1. CHEST PAIN SEEMS TO BE NONCARDIAC 2. COPD 3. RENAL AZOTEMIA 4. ANEMIA PLAN: 1. Continue Tramadol 2. IV Toradol 3. The patient declined any further workup in the way of Dobutamine chemical stress test. 4. Also for anemia, I recommended colonoscopy which she declined. CONDITION: Stable TIME SPENT: More than 30 minutes. Plan and coordination of the patient's care discussed in the presence of nurse. REGINA
--- NOTE | 2017-09-29 14:14 | PN ---
DATE OF SERVICE: 09/26/17 SUBJECTIVE: 82-year-old white female hospitalized with chest pain. The patient's chest pain seems to be noncardiac. Her chest pain has practically subsided. Severe chronic lung disease. The rest of the labs seems to be stable. Hemoglobin is 9, hematocrit 27, WBC 7, 300, normal differential. Creatinine 1.3, BUN 29, potassium 4. PHYSICAL EXAMINATION: VITAL SIGNS: Temperature 98.2, pulse 54, respiratory rate 16, BP 114/65, pulse ox 98%. HEENT: Head normocephalic, atraumatic. Eyes: Extraocular muscles are intact. Pupils are equal, round and reactive to light and accommodation. Ears: No lesions. Nose appeared normal. Throat: No exudate or erythema. NECK: Supple. No JVD, no carotid bruit. No lymphadenopathy or thyromegaly. LUNGS: Decreased breath sounds but clear to auscultation. Percussion note normal. Chest symmetrical. HEART: S1, S2, no S3. No murmurs. No cyanosis or clubbing. No ascites. Pulses: Dorsalis pedis and posterior tibial pulses +1 to +2 both sides. ABDOMEN: Soft. Nontender. Bowel sounds active. No CVA tenderness. No mass felt. EXTREMITIES: No edema. Full range of motion of all extremities, equal. NEUROLOGIC: No focal deficit. Cranial nerves II through XII are grossly intact. No headache, no double vision or headache. SKIN: Not dry. Intact. Turgor - normal. LYMPHATIC: No palpable lymph nodes/no lymphedema. MUSCULOSKELETAL: Normal joints with no swelling. Muscle tone is normal. ASSESSMENT: 1. CHEST PAIN, NONCARDIAC 2. RENAL AZOTEMIA 3. CHRONIC LUNG DISEASE 4. ANEMIA PLAN: 1. The patient declined any further workup for chest pain in the way of Dobutamine stress echo. BNP is 106 which is normal. T4, TSH is normal. 2. Anemia is of chronic disorder. She has a history of anemia but declined any further GI workup in the way of colonoscopy or EGD. 3. She will be discharged home with the same medications. No change in medications. CONDITION: Stable. TIME SPENT: More than 30 minutes. Plan and coordination of the patient's care discussed in the presence of nurse. REGINA
--- NOTE | 2017-09-29 14:16 | PN ---
CODING FOR BILLING 09/22/17 LEVEL 5 09/23/17 INTERMEDIATE 09/24/17 INTERMEDIATE 09/25/17 INTERMEDIATE 09/26/17 DISCHARGE MTDD
--- NOTE | 2017-09-29 14:29 | DS ---
DATE OF SERVICE: 09/26/17 FINAL DIAGNOSIS: 1. CHEST PAIN, NONCARDIAC 2. CRONIC LUNG DISEASE 3. HISTORY OF SMOKING IN THE PAST 4. HYPERTENSION 5. GASTROESOPHAGEAL REFLUX DISEASE 6. GENERALIZED OSTEOARTHRITIS 7. STATUS POST BACK SURGERY 8. CHRONIC KIDNEY DISEASE 9. CHRONIC ANEMIA DISCHARGE INSTRUCTIONS: Followup appointment in 7 to 10 days. Call office for appointment time. MEDICATIONS AT DISCHARGE: Continue ProAir Hfa Symbicort Ativan Lorazepam Losartan Metoprolol Prilosec as before NEW PRESCRIPTIONS: No new medications DIET INSTRUCTIONS: Heart Healthy ACTIVITY: As tolerated. SMOKING: N/A DISEASE SPECIFIC EDUCATION: Dobutamine stress echo as outpatient Anemia with need for colonoscopy and EGD to which she declined Medications Followup appointment HOSPITAL COURSE: 82-year-old white female hospitalized with chest pain, left shoulder, left upper part of the chest. The patient's chest pain was fairly atypical for coronary insufficiency. She had an echocardiogram done which showed normal LV contractility, mild enlargement of the LA cavity. Valves were normal. The patient's cardiac markers and EKGs remain normal and unchanged. The patient did not have any chest pain on exertion. She has fairly localized pain on the upper part of the chest. The patient had similar pain when I saw her last during office visit in 2012. After that, she left the area and had come back but started going to the primary care provider nurse chas Fonseca. The patient was explained about anemia and advised colonoscopy and GI workup for primary care but she had declined. Also, she was advised Dobutamine stress echo as she was unable to walk on the treadmill and she declined that. The patient wanted stronger pain medicine for left upper chest. I explained to her that it could be done by primary care provider. CONDITION AT TIME OF DISCHARGE: Stable. OF NOTE: The patient's BNP was 106, no evidence of CHF, no evidence of coronary insufficiency with normal cardiac markers. T4, TSH was normal. Hemoglobin on discharge was 9 with hematocrit of 27.8. The differential was normal. Creatinine was 1.3 with BUN of 29. Estimated GFR was 38 cc/min. The patient was given an option to come back and followup with me and also advised to followup with the primary care provider in 1 to 2 weeks. TIME SPENT: More than 60 minutes. [facility]
== END 2017-09-26 13:38 | disposition home or self-care (01) | DRG 313 ==
LOC: ED 14:24 → SCU 16:16 → MEDSURG B 09-24 21:24
PROVIDERS: ADMIT Internal Medicine; ATTEND Internal Medicine
DX: R07.89 Other chest pain (principal); J44.9 Chronic obstructive pulmonary disease, unspecified; I51.7 Cardiomegaly; D50.0 Iron deficiency anemia secondary to blood loss (chronic); I10 Essential (primary) hypertension; I12.9 Hypertensive chronic kidney disease with stage 1 through stage 4 chronic kidney disease, or unspecified chronic kidney disease; N18.9 Chronic kidney disease, unspecified; K21.9 Gastro-esophageal reflux disease without esophagitis; M19.90 Unspecified osteoarthritis, unspecified site; R23.1 Pallor; M25.512 Pain in left shoulder; Z53.20 Procedure and treatment not carried out because of patient's decision for unspecified reasons; Z79.899 Other long term (current) drug therapy; Z87.891 Personal history of nicotine dependence; Z98.1 Arthrodesis status
CPT/HCPCS: 36415; 80053; 80061; 82550; 82607; 82728; 82746; 82803; 83036; 83540; 83550; 83880; 84439; 84443; 84466; 84484; 85025; 85045; 87081; 93005; 93010; 99284

== ENCOUNTER 2018-09-02 12:53 | Outpatient (CLI) ==
--- NOTE | 2018-09-02 14:24 | US ---
EXAM: Carotid ultrasound HISTORY: Dizziness COMPARISON: None TECHNIQUE: Carotid ultrasound was performed using Duplex imaging with noriega scale, color, and Doppler imaging performed. FINDINGS: Right carotid: There is atherosclerotic plaque in the common carotid and bulb/internal carotid arter y. Peak systolic velocity measurement in the right internal carotid artery is 1.54 meters per second . End-diastolic velocity measurement in the right internal carotid artery is 0.18 meters per second. Right internal to common carotid artery peak systolic velocity ratio is 2.1. Flow in the right tio tebral artery is antegrade. Left carotid: There is atherosclerotic plaque in the common carotid and bulb/internal carotid artery . Peak systolic velocity measurement in the left internal carotid artery is 1.13 meters per second. End-diastolic velocity measurement in the left internal carotid artery is 0.20 meters per second. L eft internal to common carotid artery peak systolic velocity ratio measures 1.5. Flow in the left ve rtebral artery is antegrade. IMPRESSION: 1. Right internal carotid: Peak systolic velocity corresponds with moderate (50 - 69%) stenosis. 2. Left internal carotid: Peak systolic velocity corresponds with mild (less than 50%) stenosis.
== END 2018-09-02 12:54 | disposition home or self-care (01) ==
LOC: RAD 12:53
PROVIDERS: ATTEND Physician Assistant
DX: R42 Dizziness and giddiness (principal)
CPT/HCPCS: 93005; 93010

== ENCOUNTER 2018-09-02 13:58 | Emergency (ER) ==
[2018-09-02 14:10] VITALS: BP 144/58; TEMP 98.2; BMI 16.0
--- NOTE | 2018-09-02 14:11 | ED.PDOC ---
General ED Provider: Dr. KINDRA CUELLAR MD Chief Complaint: Chest Pain Stated Complaint: i hurt all over Time Seen by Physician: 14:00 Mode of Arrival: Walk-In Information Source: Patient Exam Limitations: No limitations Primary Care Provider: CHRIS STODDARD Nursing and Triage Documentation Reviewed and Agree: Yes Does patient meet sepsis criteria?: No If yes, has appropriate treatment been initiated?: Yes System Inflammatory Response Syndrome: Not Applicable Sepsis Protocol: For patient's 13 years and over: Temp is 96.8 and below OR 101 and greater Pulse >90 BPM Resp >20/minute Acutely Altered Mental Status Are patient's symptoms suggestive of a new infection, such as: -Pneumonia -Skin, Soft Tissue -Endocarditis -UTI -Bone, Joint Infection -Implantable Device -Acute Abdominal Infection -Wound Infection -Meningitis -Blood Stream Catheter Infection -Unknown Review of Systems - Review Of Systems Constitutional: Reports: No symptoms Eyes: Reports: No symptoms Ears, Nose, Mouth, Throat: Reports: No symptoms Respiratory: Reports: No symptoms Cardiac: Reports: No symptoms GI: Reports: No symptoms : Reports: No symptoms Musculoskeletal: Reports: No symptoms Skin: Reports: No symptoms Neurological: Reports: No symptoms Endocrine: Reports: No symptoms Hematologic/Lymphatic: Reports: No symptoms All Other Systems: Reviewed and Negative Past Medical History - Past Medical History Previously Healthy: Yes Endocrine: Reports: None Cardiovascular: Reports: Hypertension Respiratory: Reports: None Hematological: Reports: None Gastrointestinal: Reports: None Genitourinary: Reports: None Neuro/Psych: Reports: None Musculoskeletal: Reports: None Cancer: Reports: None - Surgical History General Surgical History: Reports: None - Family History Family History: Reports: None - Social History Smoking Status: Former smoker Hx Substance Use: No Alcohol Screening: None Physical Exam - Physical Exam Appearance: Well-appearing, No pain distress, Well-nourished, Thin Ill-appearing: None Pain Distress: Mild Eyes: LJ, EOMI, Conjunctiva clear ENT: Ears normal, Nose normal, Oropharynx normal Respiratory: Airway patent, Breath sounds clear, Breath sounds equal, Respirations nonlabored Cardiovascular: RRR, Pulses normal, No rub, No murmur GI/: Soft, Nontender, No masses, Bowel sounds normal, No Organomegaly Musculoskeletal: Normal strength, ROM intact, No edema, No calf tenderness Skin: Warm, Dry, Normal color Neurological: Sensation intact, Motor intact, Reflexes intact, Cranial nerves intact, Alert, Oriented Psychiatric: Affect appropriate, Mood appropriate Critical Care Note - Critical Care Note Total Time (mins): 0 Course - Course Hematology/Chemistry: 09/02/18 14:10 09/02/18 14:10 Orders, Labs, Meds: Lab Review 09/02/18 09/02/18 09/02/18 14:10 14:10 14:10 WBC 4.78 RBC 4.01 L Hgb 11.6 L Hct 35.7 L MCV 89.0 MCH 28.9 MCHC 32.5 RDW Coeff of Lexx 13.3 Plt Count 255 Immature Gran % (Auto) 0.2 Neut % (Auto) 71.4 Lymph % (Auto) 23.6 [facility] % (Auto) 4.4 Eos % (Auto) 0.2 Baso % (Auto) 0.2 Immature Gran # (Auto) 0.0 Neut # (Auto) 3.4 Lymph # (Auto) 1.1 [facility] [place] [facility] # (Auto) 0.2 L Eos # (Auto) 0.0 Baso # (Auto) 0.0 Sodium 140.5 Potassium 3.40 L Chloride 102.0 Carbon Dioxide 22.0 Anion Gap 19.90 BUN 22.3 H Creatinine 1.18 Estimated GFR (MDRD) 44.00 BUN/Creatinine Ratio 18.89 Glucose 117.2 H Calcium 9.62 Total Bilirubin 0.60 AST 25.0 ALT 14.4 Alkaline Phosphatase 77.5 Troponin I < 0.012 Total Protein 8.07 Albumin 5.17 H Globulin 2.90 Albumin/Globulin Ratio 1.78 Orders Category Date Time Status ABG DRAW REQUEST Routine CARDIO 09/02/18 15:02 Ordered ABG DRAW REQUEST Stat CARDIO 09/02/18 15:02 Ordered IV ACCESS ONCE CARE 09/02/18 14:13 Active CBC W/ AUTO DIFF Stat LAB 09/02/18 14:10 Completed CMP [COMPREHENSIVE METABOLIC PANEL] Stat LAB 09/02/18 14:10 Completed TROPONIN I Stat LAB 09/02/18 14:10 Completed Lorazepam [Ativan] MEDS 09/02/18 14:13 Discontinued 0.5 mg IVP ONCE STA Medications Discontinued Medications Generic Name Dose Route Start Last Admin Trade Name Freq PRN Reason Stop Dose Admin Lorazepam 0.5 mg 09/02/18 14:13 09/02/18 14:26 Ativan IVP 09/02/18 14:14 0.5 mg ONCE STA Administration Vital Signs: Temp Pulse Resp BP Pulse Ox 09/02/18 14:01 98.2 F 85 22 144/58 H 99 HORTENCIA Risk Score HORTENCIA Risk Score: Risk Score Odds of by 30D 0 0.1 (0.1-0.2) 1 0.3 (0.2-0.3) 2 0.4 (0.3-0.5) 3 0.7 (0.6-0.9) 4 1.2 (1.0-1.5) 5 2.2 (1.9-2.6) 6 3.0 (2.5-3.6) 7 4.8 (3.8-6.1) Departure - Departure Time of Disposition: 15:45 Disposition: HOME SELF-CARE Discharge Problem: Atypical chest pain, Anxiety Instructions: Generalized Anxiety Disorder (ED) Condition: Good Pt referred to PMD for follow-up: Yes IPMP verified?: No Allergies/Adverse Reactions: Allergies codeine Adverse Reaction (Verified 09/02/18 14:10) Home Medications: Ambulatory Orders Albuterol Sulfate [Proair Hfa] 2 puff IH Q4H PRN 09/22/17 Budesonide/Formoterol Fumarate [Symbicort 160-4.5 Mcg Inhaler] 2 puff IH BID Lorazepam [Ativan] 0.5 mg PO BEDTIME 09/22/17 Meclizine HCl [Antivert] 25 mg PO TID 09/22/17 Metoprolol Succinate 25 mg PO DAILY 09/22/17 Nitroglycerin [Nitrostat] 0.4 mg SL Q5MIN X 3 DOSES PRN 09/22/17 Omeprazole [Prilosec] 20 mg PO QDAC 09/22/17
[2018-09-02] MEDS ORDERED: ATIVAN IVP STA (14:13)
== END 2018-09-02 16:50 | disposition home or self-care (01) ==
LOC: ED 13:58
DX: F41.9 Anxiety disorder, unspecified (principal); R07.9 Chest pain, unspecified; I10 Essential (primary) hypertension; Z79.899 Other long term (current) drug therapy
CPT/HCPCS: 36415; 80053; 82803; 84484; 85025; 93005; 93010; 96374; 99284